=== PATIENT | male | born 1955 | race Native Hawaiian/Other Pacific Islander ===

== ENCOUNTER 2017-04-09 07:49 | Emergency (ER) | payer MEDICAID, OTHER ==
[2017-04-09 08:00] VITALS: RESP 18
[2017-04-09] MEDS ORDERED: Sodium Chloride 0.9% 1,000 ML IV STA (08:15)
[2017-04-09] MEDS ORDERED: Sodium Chloride 0.9% 1,000 ML ONE (08:22)
--- NOTE | 2017-04-09 08:22 | C.PDOC ---
History Of Present Illness 61 year old male presents to the ED Time Seen by Provider: 04/09/17 08:02 Chief Complaint (Nursing): Abdominal Pain History Per: Patient History/Exam Limitations: no limitations Current Symptoms Are (Timing): Still Present Recent travel outside of the [place]: No Past Medical History Reviewed: Historical Data, Nursing Documentation, Vital Signs Vital Signs: Last Vital Signs Temp 98.4 F 04/09/17 07:55 Pulse 113 H 04/09/17 07:55 Resp 18 04/09/17 07:55 BP 115/77 04/09/17 07:55 Pulse Ox 98 04/09/17 07:55 - Medical History PMH: Depression, Gastritis Family History: States: Unknown Family Hx - Social History Hx Alcohol Use: Yes Hx Substance Use: No - Immunization History Hx Tetanus Toxoid Vaccination: No Hx Influenza Vaccination: No Hx Pneumococcal Vaccination: No ED Course And Treatment O2 Sat by Pulse Oximetry: 98 (room air ) - Radiology CXR: Viewed By Me Progress Note: EKG, CXR, UA, and blood work was ordered. Patient was given pepcid, zofran, morphine, and IV fluids. Disposition - Disposition Forms: [employer] (Telugu) - Scribe Statement The provider has reviewed the documentation as recorded by the Scribe Vickie Rae All medical record entries made by the Scribe were at my direction and personally dictated by me. I have reviewed the chart and agree that the record accurately reflects my personal performance of the history, physical exam, medical decision making, and the department course for this patient. I have also personally directed, reviewed, and agree with the discharge instructions and disposition.
[2017-04-09 08:33] LABS: BASO % 0.2 % (0.0-2.0); EOS % 0.3 % (0.0-4.0); HEMATOCRIT 43.7 % (35.0-51.0); MEAN CORPUSCULAR HEMOGLOBIN 32.6 pg (27.0-31.0); MEAN CORPUSCULAR HGB CONC 34.3 g/dL (33.0-37.0); MEAN PLATELET VOLUME 7.5 fL (7.2-11.7); MONO % 12.4 % (0.0-10.0); WHITE BLOOD COUNT 8.3 K/uL (4.8-10.8)
[2017-04-09 08:41] LABS: INR 1.1
[2017-04-09 08:45] LABS: ALB/GLOB RATIO 0.9 (1.0-2.1); ALKALINE PHOSPHATASE 56 U/L (38-126); ALT/SGPT 39 U/L (21-72); AST/SGOT 28 U/L (17-59); BILIRUBIN,TOTAL 0.9 mg/dL (0.2-1.3); BLOOD UREA NITROGEN 16 mg/dL (9-20); CALCIUM 8.3 mg/dl (8.6-10.4); CARBON DIOXIDE 23 mmol/L (22-30); CHLORIDE 97 mmol/L (98-107); GFR AFRICAN-AMERICAN > 60; GLUCOSE,RANDOM 106 mg/dL (75-110); POTASSIUM 3.3 mmol/L (3.6-5.2); SODIUM 134 mmol/L (132-148); TOTAL PROTEIN 6.8 g/dL (6.3-8.3)
--- NOTE | 2017-04-09 08:51 | RAD ---
PROCEDURE: CHEST RADIOGRAPH, 1 VIEW HISTORY: abd pain COMPARISON: Chest radiographs 12/13/2015. FINDINGS: LUNGS: Clear. PLEURA: No pneumothorax or pleural fluid seen. CARDIOVASCULAR: Normal. OSSEOUS STRUCTURES: No significant abnormalities. VISUALIZED UPPER ABDOMEN: Normal. OTHER FINDINGS: None. IMPRESSION: No acute cardiopulmonary disease or significant interval change identified.
--- NOTE | 2017-04-09 09:30 | C.PDOC ---
History Of Present Illness A 61 year old male, whose past medical history includes gastritis and depression , presents to the emergency department for abdominal pain with associated nausea , vomiting, and not feeling well, for the past few days. The patient denies any chest pain, shortness of breath, fever, headaches, or any other complaints at this time. Time Seen by Provider: 04/09/17 08:02 Chief Complaint (Nursing): Abdominal Pain History Per: Patient History/Exam Limitations: no limitations Onset/Duration Of Symptoms: Days (x few days ) Location Of Pain/Discomfort: Diffuse, Epigastric Associated Symptoms: Nausea, Vomiting. denies: Fever Past Medical History Vital Signs: Last Vital Signs Temp 97.8 F 04/09/17 16:13 Pulse 88 04/09/17 16:13 Resp 18 04/09/17 16:13 BP 104/71 04/09/17 16:13 Pulse Ox 99 04/09/17 16:13 - Medical History PMH: Depression, Gastritis Family History: States: No Known Family Hx, Unknown Family Hx - Social History Hx Alcohol Use: Yes Hx Substance Use: No - Immunization History Hx Tetanus Toxoid Vaccination: No Hx Influenza Vaccination: No Hx Pneumococcal Vaccination: No Review Of Systems Except As Marked, All Systems Reviewed And Found Negative. Constitutional: Negative for: Fever Cardiovascular: Negative for: Chest Pain Respiratory: Negative for: Shortness of Breath Gastrointestinal: Positive for: Nausea, Vomiting, Abdominal Pain Neurological: Negative for: Headache Physical Exam - Physical Exam Appears: Well, Non-toxic, No Acute Distress Skin: Normal Color, Warm, Dry Head: Atraumatic, Normacephalic Eye(s): bilateral: Normal Inspection, PERRL, EOMI Nose: Normal Throat: Normal Neck: Normal Cardiovascular: Rhythm Regular, No Rhythm Irregular Respiratory: Normal Breath Sounds, No Decreased Breath Sounds, No Wheezing Gastrointestinal/Abdominal: Bowel Sounds, Soft, Tenderness (tenderness to the epigastric area and left lower quadrant ), No Guarding, No Rebound Back: Normal Inspection Extremity: Normal ROM Neurological/Psych: Oriented x3, Normal Speech, Normal Cognition ED Course And Treatment - Laboratory Results Result Diagrams: 04/09/17 08:26 04/09/17 08:26 O2 Sat by Pulse Oximetry: 100 (room air ) - CT Scan/US CT Abdomen/plevis Other Rad Studies (CT/US): Read By Radiologist, Radiology Report Reviewed CT/US Interpretation: Accession No. : [id number]. Patient Name / ID : KOLBY VAUGHAN / [id number]. Exam Date : 04/09/2017 12:27:16 ( Approved ). Study Comment : Sex / Age : M / 61Y. Creator : Jann Sawyer MD. Dictator : Jann Sawyer MD. Meat Hanger : Consultant Teacher : Jann Sawyer MD. Approver2 : Report Date : 04/09/2017 13:03:00. My Comment : . PROCEDURE: CT Abdomen and Pelvis with contrast. HISTORY: abdominal pain/ vomiting. COMPARISON: Abdomen pelvis CT with contrast 05/12/2016. TECHNIQUE: Contrast dose: Omnipaque 300, 100 cc. Radiation dose: Total exam DLP = 219 mGy-cm. This CT exam was performed using one or more of the following dose reduction techniques: Automated exposure control, adjustment of the mA and/or kV according to patient size, and/or use of iterative reconstruction technique. FINDINGS: LOWER THORAX: Unremarkable. LIVER: Mild diffuse fatty infiltration liver is appreciate with liver otherwise unremarkable appearing. GALLBLADDER AND BILE DUCTS: Unremarkable. PANCREAS: Unremarkable. No gross lesion or ductal dilatation. SPLEEN: Unremarkable. ADRENALS: Unremarkable. No mass. KIDNEYS AND URETERS: Stable bilateral kidneys and ureters including a small cyst seen at the upper midpole left kidney anteriorly. VASCULATURE: Unremarkable. No aortic aneurysm. BOWEL: Pelvis the bowel is remarkable for diffuse thickening of the entire colon with the right hemicolon more affected than the left hemicolon. Scattered diverticular seen more at the right than left hemicolon and pattern and add still favors infectious or inflammatory colitis but not diverticulitis specifically. Underlying neoplasm not excluded follow-up lower endoscopy is advised following therapy. Ischemia and neoplasm are less likely and not favored. APPENDIX: Normal appendix. PERITONEUM: Unremarkable. No free fluid. No free air. LYMPH NODES: Unremarkable. No enlarged lymph nodes. BLADDER: Unremarkable. REPRODUCTIVE: Enlarged prostate gland. BONES: No acute fracture. OTHER FINDINGS: None. IMPRESSION : But is most compatible pancolitis. Clinically correlate further. Differential diagnosis identified above. Scattered colonic diverticular seen more at the right and left [place] colon though diverticulitis is not the preferred diagnosis. Under other infectious or inflammatory causes. Stable simple cyst left kidney. Diffuse fatty infiltration liver. Enlarged prostate gland. Progress Note: Patient was treated with Cipro IV and Flagyl IV. Patient sts he doesn't want to be admitted to the hospital and preferrs to be d/c home on oral antibiotics. Patient was instructed to return to ED immediately if feel worse. - Physician Consult Information Time Consulting Physician Contacted: 09:15 Physician Contacted: Edmar Marin Outcome Of Conversation: Case discussed with Dr. Marin and agrees code heart does not need to be activated. Medical Decision Making Medical Decision Making: Treatment Plan: -- Abd Pelvis CT -- EKG -- IV Fluids, Morphine, Pepcid, Zofran, Iohexol, Potassium Chloride -- Saline Lock Progress Notes: EKG BPM: 94 Rhythm: Sinus Rhythm Notes:ST elevation in V2 - V3. The patient's lab results were negative for enzymes. Further studies will be conducted, such as a CT. Disposition - Disposition Disposition: HOME/ ROUTINE Disposition Time: 15:33 Condition: STABLE Additional Instructions: Follow up with your PMD within 1-2 days. Return to ED if feel worse. Prescriptions: Dicyclomine [Bentyl] 20 mg PO TID #30 tab Ciprofloxacin [Cipro] 1 tab PO BID #14 tab Metronidazole [Flagyl] 500 mg PO TID #30 tablet Ondansetron ODT [Zofran ODT] 4 mg PO .Q4-6H PRN #20 odt PRN Reason: Nausea/Vomiting Instructions: Colitis (ED) Forms: [employer] (Spanish) Print Language: TUVALUAN - Clinical Impression Clinical Impression: Colitis - Scribe Statement The provider has reviewed the documentation as recorded by the Scribe Vickie Rae All medical record entries made by the Scribe were at my direction and personally dictated by me. I have reviewed the chart and agree that the record accurately reflects my personal performance of the history, physical exam, medical decision making, and the department course for this patient. I have also personally directed, reviewed, and agree with the discharge instructions and disposition. Georgina Joya All medical record entries made by the Scribe were at my direction and personally dictated by me. I have reviewed the chart and agree that the record accurately reflects my personal performance of the history, physical exam, medical decision making, and the department course for this patient. I have also personally directed, reviewed, and agree with the discharge instructions and disposition.
[2017-04-09] MEDS ORDERED: Iohexol 240 (50 ml) PO STA (09:33)
[2017-04-09] MEDS ORDERED: Potassium Chloride 20 mEq ER Tab PO STA (09:33)
[2017-04-09] MEDS ORDERED: Iohexol 240 (50 ml) ONE (09:37)
[2017-04-09] MEDS ORDERED: Potassium Chloride 20 mEq/15 ml LIQ UD ONE (09:37)
[2017-04-09] MEDS ORDERED: Iohexol 300 100 ML IJ ONE (09:42)
[2017-04-09 10:12] LABS: RBC URINE 2 /hpf (0-3); URINE BILIRUBIN NEGATIVE (NEGATIVE); URINE BLOOD NEGATIVE (NEGATIVE); URINE COLOR Yellow (YELLOW); URINE GLUCOSE (UA) NORMAL (Normal); URINE KETONE 1+ mg/dL (NEGATIVE); URINE LEUKOCYTE ESTERASE NEG Leu/uL (Negative); URINE PROTEIN 1+ mg/dL (NEGATIVE); URINE UROBILINOGEN NORMAL mg/dL (0.2-1.0); WBC URINE 5 /hpf (0-5)
--- NOTE | 2017-04-09 13:05 | CT ---
PROCEDURE: CT Abdomen and Pelvis with contrast HISTORY: abdominal pain/ vomiting COMPARISON: Abdomen pelvis CT with contrast 05/12/2016 TECHNIQUE: Contrast dose: Omnipaque 300, 100 cc Radiation dose: Total exam DLP = 219 mGy-cm. This CT exam was performed using one or more of the following dose reduction techniques: Automated exposure control, adjustment of the mA and/or kV according to patient size, and/or use of iterative reconstruction technique. FINDINGS: LOWER THORAX: Unremarkable. LIVER: Mild diffuse fatty infiltration liver is appreciate with liver otherwise unremarkable appearing. GALLBLADDER AND BILE DUCTS: Unremarkable. PANCREAS: Unremarkable. No gross lesion or ductal dilatation. SPLEEN: Unremarkable. ADRENALS: Unremarkable. No mass. KIDNEYS AND URETERS: Stable bilateral kidneys and ureters including a small cyst seen at the upper midpole left kidney anteriorly. VASCULATURE: Unremarkable. No aortic aneurysm. BOWEL: Pelvis the bowel is remarkable for diffuse thickening of the entire colon with the right hemicolon more affected than the left hemicolon. Scattered diverticular seen more at the right than left hemicolon and pattern and add still favors infectious or inflammatory colitis but not diverticulitis specifically. Underlying neoplasm not excluded follow-up lower endoscopy is advised following therapy. Ischemia and neoplasm are less likely and not favored. APPENDIX: Normal appendix. PERITONEUM: Unremarkable. No free fluid. No free air. LYMPH NODES: Unremarkable. No enlarged lymph nodes. BLADDER: Unremarkable. REPRODUCTIVE: Enlarged prostate gland. BONES: No acute fracture. OTHER FINDINGS: None. IMPRESSION: But is most compatible pancolitis. Clinically correlate further. Differential diagnosis identified above. Scattered colonic diverticular seen more at the right and left [place] colon though diverticulitis is not the preferred diagnosis. Under other infectious or inflammatory causes. Stable simple cyst left kidney. Diffuse fatty infiltration liver. Enlarged prostate gland.
[2017-04-09] MEDS ORDERED: metroNIDAZOLE IV 500 mg/100 ml 500 MG/100 ML BAG IV STA (13:39)
[2017-04-09] MEDS ORDERED: Ciprofloxacin 400mg/200ml D5W 400 MG/200 ML BAG IV STA (13:39)
[2017-04-09 16:14] VITALS: BP 104/71; PULSE 88; TEMP 97.8
[2017-04-09 16:27] VITALS: O2SAT 100
--- NOTE | 2017-04-11 00:34 | CARD ---
APPROVED REPORT EKG Measurement Heart [id number] <Conclusion> Normal sinus rhythm ST elevation, consider anterior injury or acute infarct ACUTE [place] / STEMI Abnormal ECG
== END 2017-04-09 16:15 | disposition home or self-care (01) ==
LOC: C.ER 07:49
DX: K52.9 Noninfective gastroenteritis and colitis, unspecified (principal); E87.6 Hypokalemia
CPT/HCPCS: 71010; 74177; 80053; 81001; 83690; 84484; 85025; 85610; 85730; 93005; 96361; 96365; 96367; 96375; 99285; J0744; J2270; J2405; J7040; Q9966; Q9967

== ENCOUNTER 2017-07-28 16:42 | Emergency (ER) | payer OTHER ==
[2017-07-28 18:12] LABS: BASO # 0.1 K/uL (0.0-0.2); BASO % 0.8 % (0.0-2.0); EOS # 0.1 K/uL (0.0-0.7); HEMATOCRIT 45.4 % (35.0-51.0); LYMPH # 1.7 K/uL (1.0-4.3); LYMPH % 25.5 % (20.0-40.0); MEAN CELL VOLUME 97.5 fL (80.0-94.0); MEAN CORPUSCULAR HEMOGLOBIN 33.7 pg (27.0-31.0); MEAN CORPUSCULAR HGB CONC 34.5 g/dL (33.0-37.0); MEAN PLATELET VOLUME 7.2 fL (7.2-11.7); MONO # 0.4 K/uL (0.0-0.8); MONO % 6.6 % (0.0-10.0); RED CELL DISTRIBUTION WIDTH 13.1 % (11.5-14.5); WHITE BLOOD COUNT 6.7 K/uL (4.8-10.8)
[2017-07-28 18:17] LABS: URINE BILIRUBIN NEGATIVE (NEGATIVE); URINE BLOOD NEGATIVE (NEGATIVE); URINE COLOR Yellow (YELLOW); URINE GLUCOSE (UA) NORMAL (Normal); URINE KETONE NEGATIVE (NEGATIVE); URINE LEUKOCYTE ESTERASE NEG Leu/uL (Negative); URINE PROTEIN NEGATIVE (NEGATIVE); URINE UROBILINOGEN NORMAL mg/dL (0.2-1.0); WBC URINE 1 /hpf (0-5)
[2017-07-28 18:20] LABS: ALB/GLOB RATIO 1.2 (1.0-2.1); ALCOHOL SERUM < 10 mg/dl (0-10); ALKALINE PHOSPHATASE 44 U/L (38-126); ALT/SGPT 33 U/L (21-72); AST/SGOT 38 U/L (17-59); BLOOD UREA NITROGEN 19 mg/dL (9-20); CALCIUM 8.4 mg/dl (8.6-10.4); CARBON DIOXIDE 27 mmol/L (22-30); CHLORIDE 102 mmol/L (98-107); GFR AFRICAN-AMERICAN > 60; GLUCOSE,RANDOM 90 mg/dL (75-110); POTASSIUM 4.4 mmol/L (3.6-5.2); SODIUM 133 mmol/L (132-148); TOTAL PROTEIN 6.8 g/dL (6.3-8.3)
--- NOTE | 2017-07-28 20:37 | C.PDOC ---
Time Seen by Provider: 07/28/17 17:21 Chief Complaint (Nursing): Psychiatric Evaluation History Per: Patient Onset/Duration Of Symptoms: Days (about 2 weeks) Current Symptoms Are (Timing): Still Present Ingestion Of Substance: He burned his right forearm with a hot screwdriver 2 weeks ago Modifying Factor(s): Alcohol Severity: Moderate Associated Symptoms: Depression. denies: Suicidal Thoughts, Suicidal Plan Additional History Per: Prior Records Past Medical History Reviewed: Historical Data, Nursing Documentation, Vital Signs Vital Signs: Last Vital Signs Temp 97.9 F 07/28/17 20:12 Pulse 87 07/28/17 20:12 Resp 18 07/28/17 20:12 BP 142/93 H 07/28/17 20:12 Pulse Ox 98 07/28/17 20:12 - Medical History PMH: Depression, Gastritis Family History: States: Unknown Family Hx - Social History Hx Alcohol Use: Yes Hx Substance Use: No - Immunization History Hx Tetanus Toxoid Vaccination: No Hx Influenza Vaccination: No Hx Pneumococcal Vaccination: No Review Of Systems Except As Marked, All Systems Reviewed And Found Negative. Constitutional: Negative for: Fever, Weakness Cardiovascular: Negative for: Chest Pain, Light Headedness Respiratory: Negative for: Shortness of Breath Gastrointestinal: Positive for: Other (Pt c/o swelling in right groin area). Negative for: Vomiting, Abdominal Pain Genitourinary: Negative for: Dysuria, Scrotal Pain Musculoskeletal: Negative for: Neck Pain, Back Pain Skin: Negative for: Rash Neurological: Negative for: Weakness, Numbness, Seizures, Dizziness Psych: Negative for: Psychosis Physical Exam - Physical Exam Appears: Non-toxic, No Acute Distress Skin: Normal Color, Warm, Dry, No Rash Head: Atraumatic, Normacephalic Eye(s): bilateral: Normal Inspection, PERRL, EOMI Neck: Normal ROM, Supple Cardiovascular: Rhythm Regular Respiratory: Normal Breath Sounds, No Accessory Muscle Use Gastrointestinal/Abdominal: Soft, No Tenderness, Hernia (right inguinal, reducible) Back: No CVA Tenderness Male Genital: No Testicular Tenderness, No Testicular Swelling, No Scrotal Swelling Extremity: Normal ROM Neurological/Psych: Oriented x3, Normal Motor, Normal Sensation ED Course And Treatment - Laboratory Results Result Diagrams: 07/28/17 18:03 07/28/17 18:03 Lab Interpretation: No Acute Changes O2 Sat by Pulse Oximetry: 98 Pulse Ox Interpretation: Normal Progress Note: Pt was evaluated by the grease rack worker who d/w Dr. Farah. They psychiatrically cleared pt for discharge home and arranged for outpt f/up. Disposition Counseled Patient/Family Regarding: Studies Performed, Diagnosis, Need For Followup - Disposition Referrals: [facility] [Outside] Disposition: HOME/ ROUTINE Disposition Time: 20:38 Condition: STABLE Additional Instructions: Follow up with outpatient mental health as instructed. Follow up with a General Surgeon for your hernia. Return to the ER if you develop suicidal or homicidal thoughts, vomiting, abdominal pain, worsening of symptoms or if you have any other concerns. Instructions: Inguinal Hernia (ED), Depression (ED) - Clinical Impression Clinical Impression: Right inguinal hernia, Depression
[2017-07-28 21:09] VITALS: BP 142/93; PULSE 87; RESP 18; TEMP 97.9; O2SAT 98
== END 2017-07-28 21:14 | disposition home or self-care (01) ==
LOC: C.ER 16:42
DX: F32.9 Major depressive disorder, single episode, unspecified (principal); K40.90 Unilateral inguinal hernia, without obstruction or gangrene, not specified as recurrent

== ENCOUNTER 2018-05-17 08:31 | Emergency (ER) | payer OTHER ==
[2018-05-17 08:56] VITALS: TEMP 98.2; O2SAT 100
[2018-05-17 09:21] LABS: URINE BACTERIA RARE (<OCC); URINE BILIRUBIN NEGATIVE (NEGATIVE); URINE BLOOD NEGATIVE (NEGATIVE); URINE CLARITY Clear (Clear); URINE COLOR Straw (YELLOW); URINE GLUCOSE (UA) NORMAL (Normal); URINE LEUKOCYTE ESTERASE NEG Leu/uL (Negative); URINE PROTEIN NEGATIVE (NEGATIVE); URINE UROBILINOGEN NORMAL mg/dL (0.2-1.0)
[2018-05-17 09:22] LABS: BASO # 0.1 K/uL (0.0-0.2); BASO % 0.6 % (0.0-2.0); EOS # 0.1 K/uL (0.0-0.7); EOS % 0.9 % (0.0-4.0); HEMOGLOBIN 14.8 g/dL (12.0-18.0); LYMPH # 1.7 K/uL (1.0-4.3); LYMPH % 20.4 % (20.0-40.0); MEAN CELL VOLUME 96.4 fL (80.0-94.0); MEAN CORPUSCULAR HEMOGLOBIN 32.6 pg (27.0-31.0); MEAN CORPUSCULAR HGB CONC 33.8 g/dL (33.0-37.0); MEAN PLATELET VOLUME 7.5 fL (7.2-11.7); MONO # 0.5 K/uL (0.0-0.8); MONO % 5.4 % (0.0-10.0); NEUT # 6.1 K/uL (1.8-7.0); NEUT % 72.7 % (50.0-75.0); RBC 4.55 Mil/uL (4.40-5.90); WHITE BLOOD COUNT 8.3 K/uL (4.8-10.8)
--- NOTE | 2018-05-17 09:23 | C.PDOC ---
History Of Present Illness 63 year old male presents to ED for evaluation of diffuse abdominal pain since this morning. Pt states he has history of right inguinal hernia, was told about a year ago but has not followed up. Denies n/v/d, constipation, back pain, urinary symptoms, fever, or chills. Time Seen by Provider: 05/17/18 08:46 Chief Complaint (Nursing): Groin Pain History Per: Patient History/Exam Limitations: no limitations Onset/Duration Of Symptoms: Hrs Current Symptoms Are (Timing): Still Present Quality Of Discomfort: "Pain" Associated Symptoms: denies: Loss Of Appetite, Back Pain, Chest Pain, Constipation, Urinary Symptoms Alleviating Factors: None Recent travel outside of the [place]: No Additional History Per: Patient Past Medical History Reviewed: Historical Data, Nursing Documentation, Vital Signs Vital Signs: Last Vital Signs Temp 98.2 F 05/17/18 08:42 Pulse 74 05/17/18 08:42 Resp 20 05/17/18 08:42 BP 168/97 H 05/17/18 08:42 Pulse Ox 100 05/17/18 08:42 - Medical History PMH: Depression, Gastritis Family History: States: Unknown Family Hx - Social History Hx Alcohol Use: Yes Hx Substance Use: No - Immunization History Hx Tetanus Toxoid Vaccination: No Hx Influenza Vaccination: No Hx Pneumococcal Vaccination: No Review Of Systems Except As Marked, All Systems Reviewed And Found Negative. Constitutional: Negative for: Fever, Chills Gastrointestinal: Positive for: Abdominal Pain. Negative for: Nausea, Vomiting, Diarrhea, Constipation Genitourinary: Negative for: Dysuria, Frequency, Incontinence, Hematuria Musculoskeletal: Negative for: Back Pain Physical Exam - Physical Exam Appears: Non-toxic, No Acute Distress Skin: Normal Color, Warm, Dry Head: Atraumatic, Normacephalic Eye(s): bilateral: Normal Inspection Oral Mucosa: Moist Neck: Normal ROM, Supple Chest: Symmetrical Cardiovascular: Rhythm Regular, No Murmur Respiratory: Normal Breath Sounds, No Rales, No Rhonchi, No Wheezing Gastrointestinal/Abdominal: Soft, No Tenderness, No Guarding, No Rebound Back: No CVA Tenderness Male Genital: No Inguinal Tenderness (no erythema), Inguinal Swelling (minimal swelling to right groin) Extremity: Normal ROM Neurological/Psych: Oriented x3, Normal Speech ED Course And Treatment - Laboratory Results Result Diagrams: 05/17/18 09:15 05/17/18 09:15 O2 Sat by Pulse Oximetry: 100 (RA) Pulse Ox Interpretation: Normal - CT Scan/US Abd/pelvis Other Rad Studies (CT/US): Read By Radiologist, Radiology Report Reviewed CT/US Interpretation: Date of service: 05/17/2018. PROCEDURE: CT Abdomen and Pelvis with contrast. HISTORY: Abdominal pain/inguinal hernia. COMPARISON: 04/09/2017. TECHNIQUE: CT scan of the abdomen and pelvis was performed after administration of intravenous contrast. Oral contrast was not administered. Coronal and sagittal reformatted images were obtained. Contrast dose: 100 mL Visipaque. Radiation dose: Total exam DLP = 572.52 mGy-cm. This CT exam was performed using one or more of the following dose reduction techniques: Automated exposure control, adjustment of the mA and/or kV according to patient size, and/or use of iterative reconstruction technique. FINDINGS: LOWER THORAX: The visualized lungs are clear. LIVER: The liver is normal in size. There is diffuse fatty infiltration. No gross lesion or ductal dilatation. GALLBLADDER AND BILE DUCTS: No calcified gallstones. PANCREAS: Normal in size with homogeneous enhancement. No gross lesion or ductal dilatation. SPLEEN: Normal in size and appearance. ADRENALS: No discrete nodule. KIDNEYS AND URETERS: Normal in size with homogeneous enhancement. There is a stable simple cortical cyst in the left upper pole. No hydronephrosis. No solid mass. VASCULATURE: Unremarkable. No aortic aneurysm. BOWEL: The small bowel loops are normal in caliber. There is colonic diverticulosis without CT evidence for acute diverticulitis. No bowel wall thickening or obstruction. APPENDIX: Normal appendix. PERITONEUM: No free fluid. No free air. LYMPH NODES: No enlarged lymph nodes. BLADDER: Well distended and normal in appearance. REPRODUCTIVE: There is moderate enlargement of the prostate gland with median lobe hypertrophy indenting on the base of the urinary bladder. BONES: No acute fracture. OTHER FINDINGS: There is a large fat containing right inguinal scrotal hernia. There is a small fat containing left inguinal hernia. There is a small sliding hiatal hernia. IMPRESSION: 1. Large fat containing right inguinal scrotal hernia. 2. Moderate enlargement of the prostate gland with median lobe hypertrophy indenting on the base of the urinary bladder. Please correlate with PSA levels. 3. Colonic diverticulosis without CT evidence for acute diverticulitis. Medical Decision Making Medical Decision Making: Plan: * Blood work * Urinalysis * CT abd/pelvis Patient required no pain medication throughout ED course, felt comfortable. Workup was unremarkable. Results discussed with patient. Advised outpatient followup. No evidence of incarcerated hernia at this time. Disposition - Disposition Disposition: HOME/ ROUTINE Disposition Time: 12:43 Condition: GOOD Additional Instructions: CLEMENT JARRETT, thank you for letting us take care of you today. Your provider was Citlali Knox MD and you were treated for AB PAIN. The emergency medical care you received today was directed at your acute symptoms. If you were prescribed any medication, please fill it and take as directed. It may take several days for your symptoms to resolve. Return to the Emergency Department if your symptoms worsen, do not improve, or if you have any other problems. Please contact your doctor or call one of the physicians/clinics you have been referred to that are listed on the Patient Visit Information form that is included in your discharge packet. Bring any paperwork you were given at discharge with you along with any medications you are taking to your follow up visit. Our treatment cannot replace ongoing medical care by a primary care provider outside of the emergency department. Thank you for allowing the [facility] team to be part of your care today. If you had an X-Ray or CT scan: A Radiologist will review the ED reading if any change in treatment is needed we will contact you. If you had a blood, urine, or wound culture: It will take several days for the results, if any change in treatment is needed we will contact you. If you had an STI test: It will take 48 hours for the results. Please call after 1 week if you have not heard back. Instructions: Acute Abdomen (Belly Pain), Adult (DC), Groin Hernia (DC) Forms: [employer] (Tajik) - Clinical Impression Clinical Impression: Abdominal pain, Right inguinal hernia - Scribe Statement The provider has reviewed the documentation as recorded by the Juan C SÁNCHEZ All medical record entries made by the Scribe were at my direction and personally dictated by me. I have reviewed the chart and agree that the record accurately reflects my personal performance of the history, physical exam, medical decision making, and the department course for this patient. I have also personally directed, reviewed, and agree with the discharge instructions and disposition.
[2018-05-17 09:32] LABS: ALB/GLOB RATIO 1.3 (1.0-2.1); ALBUMIN 3.8 g/dL (3.5-5.0); ALT/SGPT 30 U/L (21-72); AST/SGOT 26 U/L (17-59); BLOOD UREA NITROGEN 18 mg/dL (9-20); CALCIUM 8.9 mg/dl (8.6-10.4); GFR NON-AFRICAN AMERICAN > 60; LIPASE 200 U/L (23-300)
[2018-05-17] MEDS ORDERED: Iodixanol 320 MG/ML 100 ML BOTTLE IV ONE (10:27)
[2018-05-17 11:44] VITALS: BP 135/93; PULSE 81; RESP 16
--- NOTE | 2018-05-17 12:15 | CT ---
Date of service: 05/17/2018 PROCEDURE: CT Abdomen and Pelvis with contrast HISTORY: Abdominal pain/inguinal hernia COMPARISON: 04/09/2017. TECHNIQUE: CT scan of the abdomen and pelvis was performed after administration of intravenous contrast. Oral contrast was not administered. Coronal and sagittal reformatted images were obtained. Contrast dose: 100 mL Visipaque Radiation dose: Total exam DLP = 572.52 mGy-cm. This CT exam was performed using one or more of the following dose reduction techniques: Automated exposure control, adjustment of the mA and/or kV according to patient size, and/or use of iterative reconstruction technique. FINDINGS: LOWER THORAX: The visualized lungs are clear. LIVER: The liver is normal in size. There is diffuse fatty infiltration. No gross lesion or ductal dilatation. GALLBLADDER AND BILE DUCTS: No calcified gallstones. PANCREAS: Normal in size with homogeneous enhancement. No gross lesion or ductal dilatation. SPLEEN: Normal in size and appearance. ADRENALS: No discrete nodule. KIDNEYS AND URETERS: Normal in size with homogeneous enhancement. There is a stable simple cortical cyst in the left upper pole. No hydronephrosis. No solid mass. VASCULATURE: Unremarkable. No aortic aneurysm. BOWEL: The small bowel loops are normal in caliber. There is colonic diverticulosis without CT evidence for acute diverticulitis. No bowel wall thickening or obstruction. APPENDIX: Normal appendix. PERITONEUM: No free fluid. No free air. LYMPH NODES: No enlarged lymph nodes. BLADDER: Well distended and normal in appearance. REPRODUCTIVE: There is moderate enlargement of the prostate gland with median lobe hypertrophy indenting on the base of the urinary bladder. BONES: No acute fracture. OTHER FINDINGS: There is a large fat containing right inguinal scrotal hernia. There is a small fat containing left inguinal hernia. There is a small sliding hiatal hernia. IMPRESSION: 1. Large fat containing right inguinal scrotal hernia. 2. Moderate enlargement of the prostate gland with median lobe hypertrophy indenting on the base of the urinary bladder. Please correlate with PSA levels. 3. Colonic diverticulosis without CT evidence for acute diverticulitis. 4. Fatty liver.
== END 2018-05-17 13:22 | disposition home or self-care (01) ==
LOC: C.ER 08:31
DX: K40.90 Unilateral inguinal hernia, without obstruction or gangrene, not specified as recurrent (principal); R10.84 Generalized abdominal pain
CPT/HCPCS: 74177; 80053; 81001; 83690; 85025; 99284; Q9967